=== PATIENT | male | born 1995 | race Caucasian/White ===

== ENCOUNTER 2019-01-27 20:01 | Emergency (ER) | payer SELFPAY, MEDICAID ==
[2019-01-27] MEDS: IBUPROFEN 600 MG TAB PO (22:35)
== END 2019-01-27 23:38 | disposition home or self-care (01) ==
LOC: FTE 20:01
DX: S69.92XA Unspecified injury of left wrist, hand and finger(s), initial encounter (principal); W22.8XXA Striking against or struck by other objects, initial encounter; Y92.9 Unspecified place or not applicable
CPT/HCPCS: 73130; 73130-LT; 99283-25